=== PATIENT | female | born 1975 | race Caucasian/White ===

== ENCOUNTER 2016-12-29 11:33 | Emergency (ER) | payer OTHER ==
[~2016-12-29] VITALS: Ht 162.6 cm; Wt 70.5 kg
[~2016-12-29 11:33] MED LIST: AZAT50 PO; BENZ100 PO; PRED20 PO; PRED5TAB PO
[2016-12-29 11:35] VITALS: BP 164/93; PULSE 97; RESP 15; TEMP 98.2; O2SAT 96
--- NOTE | 2016-12-29 11:40 | PD ---
Physical Exam Date Seen by Provider: Dec 29, 2016 Time Seen by Provider: 11:36 Narrative 41-year-old female employee [employer] presents to the emergency room status post slip and fall on water while working. She is now complaining of pain in the left wrist and arm as well as low back. Took 800 mg ibuprofen prior to arrival. Pain is currently 8 out of 10. Patient is ambulatory and able to move the left arm. She is allergic to alcohol, latex, methotrexate, sulfite, and tramadol. This is a workplace injury. Data Data Last Documented VS Vital Signs Date Time Temp Pulse Resp B/P (MAP) Pulse Ox O2 Delivery O2 Flow Rate FiO2 12/29/16 11:35 98.2 97 15 164/93 (116) 96 MDM Medical Record Reviewed: Yes Supervised Visit with LOGAN: Yes Narrative Course Vital signs are stable. X-rays of the left wrist, elbow, and shoulder are ordered. Patient is moved to the K Pod. Condition: Stable Tommy Khan Dec 29, 2016 11:40
[2016-12-29] MEDS ORDERED: ADDE10 PO (11:55)
--- NOTE | 2016-12-29 12:07 | PD ---
HPI Chief Complaint: Fall Time Seen by Provider: 12:06 Travel History International Travel<30 days: No Contact w/Intl Traveler<30days: No Traveled to known affect area: No History of Present Illness HPI 41-year-old female, [employer] employee, presents to emergency department with complaint of left shoulder, left elbow, left wrist pain, and low back pain after slipping on water and falling while at work today. She landed on her buttocks injuring her lower back. Denies hitting her head or loss of consciousness. Denies neck pain. Denies anticoagulant therapy. Denies encopresis, incontinence, saddle anesthesias. Reports paresthesias in bilateral lower extremities. Denies sensation, decreased range of motion or strength to bilateral lower extremities. Denies paresthesias, loss of sensation to left upper extremity. Reports decreased range of motion at the left shoulder. Denies chest pain, shortness of breath, abdominal pain, nausea, vomiting. Rates low back pain 8/10. Describes back pain as a shooting sensation. Low back pain is aggravated with ambulation, movement and palpation. Rates left arm pain 7/10. Describes it as an aching sensation. Left arm pain is aggravated with movement and palpation. Took 800 mg ibuprofen prior to evaluation. Has no other medical complaints. Allergies to alcohol, latex, methotrexate, sulfite, tramadol. No other modifying factors or associated signs and symptoms. PFSH Past Medical History Arthritis: Yes Asthma: Yes Autoimmune Disease: Yes (Lupus) Blood Disorders: No Cancer: No Cardiovascular Problems: No Chemotherapy: No Diabetes: No Diminished Hearing: No Endocrine: No Gastrointestinal Disorders: Yes (GERD, OCC NAUSEA VOMITING) GERD: Yes Genitourinary: No Hepatitis: No Hiatal Hernia: No Immune Disorder: Yes (LUPUS) Musculoskeletal: Yes (C5 HNP, ARTHRITIS) Neurologic: No Psychiatric: No Reproductive: Yes (HYSTERECTOMY) Respiratory: Yes (ASTHMA) Radiation Therapy: No Thyroid Disease: No Tetanus Vaccination: Unknown Influenza Vaccination: Yes ?: Not Past Surgical History Abdominal Surgery: Yes (LAP IRON) AICD: No Cholecystectomy: Yes Gynecologic Surgery: Yes (LASH) Hysterectomy: Yes Joint Replacement: No Pacemaker: No Other Surgery: Yes (LEFT KNEE SX) Social History Alcohol Use: No Tobacco Use: No Substance Use: No Allergies-Medications (Allergen,Severity, Reaction): Coded Allergies: alcohol (Unverified Allergy, Severe, ANAPHYLAXIS TO DRINKING ETOH, ) latex (Unverified Allergy, Mild, SWELLING AND HIVES, 12/29/16) sulfite (Unverified Allergy, Mild, AIRWAY OBST, 12/29/16) tramadol (Unverified Adverse Reaction, Unknown, 12/29/16) Memory changes Uncoded Allergies: methotrexate (Allergy, Severe, Loses vision, 08/17/16) Reported Meds & Prescriptions Reported Meds & Active Scripts Active Robaxin (Methocarbamol) 500 Mg Tab 500 Mg PO QID PRN Ibuprofen 800 Mg Tab 800 Mg PO Q6HR PRN Reported Adderall (Amphetamine-Dextroamphetamine) 10 Mg Tab 10 Mg PO DAILY Avoid late evening doses. Space doses at least 4 to 6 hours if more than once/day dosing. Review of Systems Except as stated in HPI: all other systems reviewed are Neg Physical Exam Narrative GENERAL: Well-nourished, well-developed female patient, in no acute distress; afebrile, nontoxic-appearing SKIN: Warm and dry. HEAD: Atraumatic. Normocephalic. EYES: Pupils equal and round. No scleral icterus. No injection or drainage. ENT: Mucosa pink and moist. Airway patent. NECK: Trachea midline. Moving freely. No midline tenderness on palpation of the cervical spine. Active rotation of the neck greater than 45 to the left and the right. CARDIOVASCULAR: Regular rate. RESPIRATORY: No accessory muscle use. GASTROINTESTINAL: Flat. MUSCULOSKELETAL: Left upper extremity supple and non-tense with 2+ radial pulse and sensory intact; full range of motion at the elbow; reproducible tenderness to the radial aspect of the left elbow; without edema, erythema, ecchymosis. Left shoulder with approximately 45 abduction; limited range of motion forward and backwards; No obvious deformity; shoulders equal; tenderness on palpation to the anterior aspect. Left wrist without erythema, edema, ecchymosis; no tenderness on palpation; with full range of motion. Bilateral lower extremities supple and non-tense with 2+ pedal pulses and sensory intact; with full range of motion and 5/5 strength. 2+ DTRs bilaterally. Bilateral straight leg raise is negative for low back pain. Ambulatory in room with a guarded gait. Sitting up in bed at 90. No obvious deformities. No clubbing. No cyanosis. No edema. BACK: Midline point tenderness on palpation of the lumbar spine. Tenderness on palpation of right lumbar paraspinal area. No obvious deformities. NEUROLOGICAL: Awake and alert. Oriented 3. No obvious cranial nerve deficits. Motor grossly within normal limits. Normal speech. Moves all extremities. 5/5 strength to all extremities. Sensory intact. PSYCHIATRIC: Appropriate mood and affect; insight and judgment normal. Data Data Last Documented VS Vital Signs Date Time Temp Pulse Resp B/P (MAP) Pulse Ox O2 Delivery O2 Flow Rate FiO2 12/29/16 11:35 98.2 97 15 164/93 (116) 96 Orders Orders Elbow, Complete (4 Vws) (12/29/16 11:40) Shoulder, Complete (>2vws) (12/29/16 11:40) Wrist, Complete (Sgh7yps) (12/29/16 11:40) Orphenadrine Inj (Norflex Inj) (12/29/16 12:30) Sling Cradle Arm (12/29/16 ) Ct Lumb Spine W/O Contrast (12/29/16 ) Sling Cradle Arm (12/29/16 ) Ed Discharge Order (12/29/16 13:51) [facility] Medical Decision Making Medical Screen Exam Complete: Yes Emergency Medical Condition: Yes Medical Record Reviewed: Yes Differential Diagnosis Fall, shoulder strain, rotator cuff tear, AC joint separation, elbow contusion, elbow fracture, lumbar fracture, low back strain, lumbar contusion Narrative Course 41-year-old female, [employer] employee, with left shoulder injury, left elbow injury, left wrist injury, low back injury after a mechanical slip and fall. Denies hitting her head or loss of consciousness. Denies neck pain. Patient has midline tenderness on palpation of the lumbar spine. Denies encopresis, incontinence, saddle anesthesias. Is ambulatory in the room with a guarded gait. Left shoulder x-ray, left elbow x-ray, left wrist x-ray were ordered in triage. Norflex administered in the ER. CT lumbar spine ordered. 1244: Left elbow, shoulder, wrist x-rays with no acute findings. X-ray findings discussed with the patient. 1348: CT lumbar spine concludes: Mild degenerative disc disease at the lumbosacral junction with a minimal grade 1 retrolisthesis of L5 on S1; No fracture. CT findings discussed with the patient and patient provided a copy of the report. Yessi larose ibuprofen prescribed for home. Arm sling provided for support. Instructed patient to follow up with orthopedics. Instructed patient to follow up with primary care provider. Patient verbalizes understanding and agreement with treatment plan. Patient is medically cleared and stable for discharge. Discussed reasons to return to the emergency department. Patient agrees with treatment plan. The patients vital signs are stable and the patient is stable for outpatient follow-up and treatment. Patient discharged home, stable and in no acute distress. Diagnosis Primary Impression: Fall Qualified Codes: W19.XXXA - Unspecified fall, initial encounter Additional Impressions: Left shoulder strain Qualified Codes: S46.912A - Strain of unspecified muscle, fascia and tendon at shoulder and upper arm level, left arm, initial encounter Injury of left elbow Qualified Codes: S59.902A - Unspecified injury of left elbow, initial encounter Injury of low back Qualified Codes: S39.92XA - Unspecified injury of lower back, initial encounter Referrals: Carmen ([facility] [place] Human Resources Primary Care Physician Patient Instructions: Acute Low Back Pain (ED), Contusion in Adults (ED), Fall Prevention (ED), General Instructions, Low Back Strain (ED), Shoulder Sprain (ED ) Additional Instructions: Tylenol or ibuprofen as directed and as needed for pain Robaxin as prescribed and as needed for muscle spasms Heating pad and/or ice to affected area to reduce pain Avoid aggravating activities; increase activity as tolerated Follow-up with primary care provider Return to emergency department immediately with worsening of symptoms Tylenol or ibuprofen as needed and as directed to reduce pain and inflammation Rest, ice, and compress extremity to decrease pain and inflammation Arm sling for support Avoid aggravating activity; increase activity as tolerated Follow-up with primary care provider Follow-up with orthopedics as needed Return to the emergency department immediately with worsening symptoms Med/Other Pt SpecificInfo: Prescription(s) given Scripts Methocarbamol (Robaxin) 500 Mg Tab 500 MG PO QID Y for MUSCLE SPASM, #30 TAB 0 Refills Prov: Thu Leos 12/29/16 Ibuprofen (Ibuprofen) 800 Mg Tab 800 MG PO Q6HR Y for PAIN, #30 TAB 0 Refills Prov: Thu Leos 12/29/16 Disposition: 01 DISCHARGE HOME Condition: Stable Thu Leos Dec 29, 2016 12:06
[2016-12-29] MEDS ORDERED: ORPHENADRINE INJ 60 MG/2 ML AMP IM ONE (12:30)
--- NOTE | 2016-12-29 12:34 | RADRPT ---
EXAM DATE/TIME: 12/29/2016 12:12 [facility] COMPARISON: No previous studies available for comparison. INDICATIONS : Left shoulder pain after falling and landing primarily on left side. MEDICAL HISTORY : Lupus. SURGICAL HISTORY : Hysterectomy. Left wrist tendon repair. ENCOUNTER: Initial ACUITY: 1 day PAIN SCORE: 10/10 LOCATION: Left shoulder FINDINGS: Multiple view examination of the left shoulder demonstrates no evidence of fracture or dislocation. The glenohumeral and acromioclavicular joints are maintained. There is normal range of motion betwee n internal and external rotation. Bony mineralization is normal. CONCLUSION: No acute disease. Dominguez Vila MD on December 29, 2016 at 12:33 Board Certified Radiologist. This report was verified electronically.
--- NOTE | 2016-12-29 12:37 | RADRPT ---
EXAM DATE/TIME: 12/29/2016 12:16 [facility] COMPARISON: No previous studies available for comparison. INDICATIONS : Left elbow pain after falling and landing primarily on left side. MEDICAL HISTORY : Lupus. SURGICAL HISTORY : Hysterectomy. Left wrist tendon repair. ENCOUNTER: Initial ACUITY: 1 day PAIN SCORE: 8/10 LOCATION: Left elbow FINDINGS: Multiple view examination of the left elbow demonstrates no soft tissue swelling, joint effusion, or fracture. The osseous structures are in normal alignment. Bony mineralization is normal. CONCLUSION: No acute disease. Dominguez Vila MD on December 29, 2016 at 12:33 Board Certified Radiologist. This report was verified electronically.
--- NOTE | 2016-12-29 12:38 | RADRPT ---
EXAM DATE/TIME: 12/29/2016 12:19 [facility] COMPARISON: No previous studies available for comparison. INDICATIONS : Left wrist pain after falling and landing primarily on left side. MEDICAL HISTORY : Lupus. SURGICAL HISTORY : Hysterectomy. Left wrist tendon repair. ENCOUNTER: Initial ACUITY: 1 day PAIN SCORE: 6/10 LOCATION: Left wrist FINDINGS: Three view examination of the left wrist demonstrates no soft tissue swelling, dislocation, or fractu re. The carpal bones are in normal alignment. The joint spaces are maintained. Bony mineralization is normal. CONCLUSION: No acute disease. Dominguez Vila MD on December 29, 2016 at 12:36 Board Certified Radiologist. This report was verified electronically.
--- NOTE | 2016-12-29 13:45 | RADRPT ---
EXAM DATE/TIME: 12/29/2016 13:13 [facility] COMPARISON: No previous studies available for comparison. INDICATIONS : Slipped and fell. Lower back pain. RADIATION DOSE: 35.86 CTDIvol (mGy) MEDICAL HISTORY : Lupus. SURGICAL HISTORY : Hysterectomy. ENCOUNTER: Initial ACUITY: 1 day PAIN SCALE: 7/10 LOCATION: Bilateral back TECHNIQUE: Volumetric scanning of the lumbar spine was performed. Multiplanar reconstructions in the sagittal, coronal and oblique axial planes were performed. Using automated exposure control and adjustment of the mA and/or kV according to patient size, radiation dose was kept as low as reasonably achievable t o obtain optimal diagnostic quality images. DICOM format image data is available electronically for review and comparison. FINDINGS: VERTEBRAE: Normal vertebral body height. ALIGNMENT: Minimal grade 1 retrolisthesis of L5 on S1. Some loss of disc height at the lumbosacral junction . MISCELLANEOUS: Patient is status post cholecystectomy T12-L1: The thecal sac has a normal diameter. No evidence of disc bulge or protrusion. The neural foramina are patent bilaterally. L1-L2: The thecal sac has a normal diameter. No evidence of disc bulge or protrusion. The neural foramina are patent bilaterally. L2-L3: The thecal sac has a normal diameter. No evidence of disc bulge or protrusion. The neural foramina are patent bilaterally. L3-L4: The thecal sac has a normal diameter. No evidence of disc bulge or protrusion. The neural foramina are patent bilaterally. L4-L5: The thecal sac has a normal diameter. No evidence of disc bulge or protrusion. The neural foramina are patent bilaterally. L5-S1: The thecal sac has a normal diameter. No evidence of disc bulge or protrusion. The neural foramina are patent bilaterally. CONCLUSION: 1. Mild degenerative disc disease at the lumbosacral junction with a minimal grade 1 retrolisthesis o f L5 on S1. 2. No fracture. Mart Pemberton MD on December 29, 2016 at 13:40 Board Certified Radiologist. This report was verified electronically.
[2016-12-29] MEDS ORDERED: ROBA500T PO (13:51)
[2016-12-29] MEDS ORDERED: IBUP800T23 PO (13:51)
== END 2016-12-29 14:08 | disposition home or self-care (01) ==
LOC: NEPK 11:33
DX: S46.912A Strain of unspecified muscle, fascia and tendon at shoulder and upper arm level, left arm, initial encounter (principal); S59.902A Unspecified injury of left elbow, initial encounter; S39.92XA Unspecified injury of lower back, initial encounter; W01.0XXA Fall on same level from slipping, tripping and stumbling without subsequent striking against object, initial encounter; Y92.239 Unspecified place in hospital as the place of occurrence of the external cause; Y99.0 Civilian activity done for income or pay; M32.9 Systemic lupus erythematosus, unspecified; J45.909 Unspecified asthma, uncomplicated; M19.90 Unspecified osteoarthritis, unspecified site
CPT/HCPCS: 72131; 73030; 73080; 73110; 96372; 99285; J2360